=== PATIENT | female | born 1975 | race Caucasian/White ===

== ENCOUNTER 2019-02-21 10:03 | Emergency (ER) | payer OTHER ==
[2019-02-21] MEDS ORDERED: TETANUS & DIPHTHERIA TOX,ADULT 0.5 ML VIAL ONE (10:43)
[2019-02-21] MEDS ORDERED: LIDOCAINE 1% MPF 5 ML VIAL ONE (10:43)
--- NOTE | 2019-02-21 11:37 | ER ---
Nurse's Notes [facility] Name: Wyatt Marcano Age: 43 yrs Sex: Female : 1975 Arrival Date: 02/21/2019 Time: 10:06 Bed 13 Private MD: Kurt Bolivar Diagnosis: Laceration without foreign body of left hand Presentation: 02/21 10:21 Presenting complaint: Patient states: "I cut my hand on a knife pulling the knife out aj1 of the hodgson" Laceration noted to webspace between left thumb and index finger. Transition of care: patient was not received from another setting of care. Complicating Factors: There are no complicating factors for this patient. Onset of symptoms was February 21, 2019. Onset of symptoms was February 21, 2019 at 09:15. Risk Assessment: Do you want to hurt yourself or someone else? Patient reports no desire to harm self or others. Initial Sepsis Screen: Does the patient meet any 2 criteria? No. Patient's initial sepsis screen is negative. Does the patient have a suspected source of infection? No. Patient's initial sepsis screen is negative. Care prior to arrival: None. 10:21 Method Of Arrival: Ambulatory aj1 10:21 Acuity: SYDNIE 4 aj1 Triage Assessment: 10:23 General: Appears in no apparent distress. comfortable, Behavior is calm, cooperative, aj1 appropriate for age. Pain: Complains of pain in Left first web space. Neuro: Level of Consciousness is awake, alert, obeys commands. Cardiovascular: Patient's skin is warm and dry. Respiratory: Airway is patent Respiratory effort is even, unlabored, Respiratory pattern is regular, symmetrical. Injury Description: Laceration sustained to Left first web space. 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 - Social history:: Smoking status: Patient uses tobacco products, smokes one-half pack cigarettes per day. - Ebola Screening: : Patient denies travel to an Ebola-affected area in the 21 days before illness onset. Screenin:48 Abuse screen: Denies threats or abuse. Denies injuries from another. Nutritional iw screening: No deficits noted. Tuberculosis screening: No symptoms or risk factors identified. Fall Risk None identified. Assessment: 10:46 General: Appears in no apparent distress. Behavior is calm, cooperative. Pain: iw Complains of pain in left hand and Left first web space. Neuro: Level of Consciousness is awake, alert, obeys commands, Oriented to person, place, time, situation, Moves all extremities. Cardiovascular: Patient's skin is warm and dry. Respiratory: Airway is patent Respiratory effort is even, unlabored, Respiratory pattern is regular, symmetrical. GI: No signs and/or symptoms were reported involving the gastrointestinal system. Derm: Skin is intact. Musculoskeletal: Range of motion: intact in all extremities. Injury Description: Laceration sustained to Left first web space is 0.5 to 2.5 cm long, was sustained 1-2 hours ago. is bleeding a small amount. Vital Signs: 10:23 BP 119 / 84; Pulse 89; Resp 18; Temp 97.8; Pulse Ox 98% on R/A; Weight 76.66 kg (R); aj1 Height 5 ft. 2 in. (157.48 cm) (R); Pain 2/10; 10:23 Body Mass Index 30.91 (76.66 kg, 157.48 cm) aj1 ED Course: 10:06 Patient arrived in ED. mr 10:06 Kurt Bolivar MD is Private Physician. mr 10:07 Fareed Mckeon NP is PHCP. pm1 10:07 Toni Oshea MD is Attending Physician. pm1 10:22 Triage completed. aj1 10:23 Arm band placed on Patient placed in an exam room. aj1 10:25 Edita Retana, GEE is Primary Nurse. iw 10:48 Patient has correct armband on for positive identification. Bed in low position. iw 10:48 Patient did not have IV access during this emergency room visit. iw 11:30 Assist provider with laceration repair on Left first web space that was between 2.6 to iw 7.5 cm using sutures. Set up tray. Performed by Fareed Mckeon PREPRESS OPERATOR Dressed with 4X4s, Patient tolerated well. 12:13 Orthoglass splint: Thumb spica splint applied on left forearm. mh5 Administered Medications: 10:45 Drug: Tetanus-Diphtheria Toxoid Adult 0.5 ml {Electronic Musical Instrument Repairer: [employer]. Exp: iw 01/03/2021. Lot #: [id number]. } Route: IM; Site: right deltoid; 12:15 Drug: Lidocaine (1 %) 5 ml Volume: 5 ml; Route: Infiltration; iw Outcome: 11:36 Discharge ordered by MD. pm1 12:14 Discharged to home ambulatory, with family. iw 12:14 Condition: good 12:14 Discharge instructions given to patient, family, Instructed on discharge instructions, follow up and referral plans. medication usage, Demonstrated understanding of instructions, follow-up care, medications, Prescriptions given X 1. 12:15 Patient left the ED. iw Signatures: Michelle Joseph RN RN 1 Marivel Arias Irene, RN RN iw Fareed Mckeon, ADRIENNE PREPRESS OPERATOR pm1 [facility]
--- NOTE | 2019-02-21 11:37 | EDPHYS ---
Physician Documentation [facility] Name: Wyatt Marcano Age: 43 yrs Sex: Female : 1975 Arrival Date: 02/21/2019 Time: 10:06 Bed 13 Private MD: Kurt Bolivar ED Physician Toni Oshea HPI: 02/21 10:35 This 43 yrs old Female presents to ER via Ambulatory with complaints of pm1 Laceration To Left Hand. 10:35 The patient has a laceration related to: Patient was taking her knife out of the sheath pm1 and cut herself between the thumb and second finger occurred at home. Onset: The symptoms/episode began/occurred just prior to arrival. Associated signs and symptoms: Pertinent negatives: deformity, heavy bleeding, numbness distal to injury, suspected foreign body. 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 - Social history:: Smoking status: Patient uses tobacco products, smokes one-half pack cigarettes per day. - Ebola Screening: : Patient denies travel to an Ebola-affected area in the 21 days before illness onset. ROS: 10:35 Constitutional: Negative for fever, chills, and weight loss, Cardiovascular: Negative pm1 for chest pain, palpitations, and edema, Respiratory: Negative for shortness of breath, cough, wheezing, and pleuritic chest pain. 10:35 Neuro: Negative for headache, weakness, numbness, tingling, and seizure. 10:35 MS/extremity: Positive for laceration, of the Left first web space, Negative for decreased range of motion, deformity. 10:35 Skin: Positive for laceration(s), of the Left first web space. 10:35 All other systems are negative. Exam: 10:35 Constitutional: This is a well developed, well nourished patient who is awake, alert, pm1 and in no acute distress. Head/Face: Normocephalic, atraumatic. Neck: Trachea midline, no thyromegaly or masses palpated, and no cervical lymphadenopathy. Supple, full range of motion without nuchal rigidity, or vertebral point tenderness. No Meningismus. Chest/axilla: Normal chest wall appearance and motion. Nontender with no deformity. No lesions are appreciated. Cardiovascular: Regular rate and rhythm with a normal S1 and S2. No gallops, murmurs, or rubs. Normal PMI, no JVD. No pulse deficits. Respiratory: Lungs have equal breath sounds bilaterally, clear to auscultation and percussion. No rales, rhonchi or wheezes noted. No increased work of breathing, no retractions or nasal flaring. 10:35 Skin: Appearance: normal except for affected area, injury, laceration(s), the wound is approximately 2 cm(s), with a depth of 0.5 cm(s), of the Left first web space. 10:35 Neuro: Orientation: is normal, Motor: is normal, moves all fours, FROM intact to left thumb and left second finger, Sensation: is normal, no obvious gross deficits. Vital Signs: 10:23 BP 119 / 84; Pulse 89; Resp 18; Temp 97.8; Pulse Ox 98% on R/A; Weight 76.66 kg (R); aj1 Height 5 ft. 2 in. (157.48 cm) (R); Pain 2/10; 10:23 Body Mass Index 30.91 (76.66 kg, 157.48 cm) aj1 Laceration: 11:34 Wound Repair of 2cm ( 0.8in ) subcutaneous laceration to Left first web space. Linear pm1 shaped.. Distal neuro/vascular/tendon intact. Anesthesia: Local anesthetic administered with 3 mls of 1% lidocaine. Wound prep: Extensive cleansing with hibiclenz by fl, Wound irrigation with saline by fl, Wound explored extensively, Copious irrigation. Skin closed with 5 4-0 Prolene using simple sutures and sterile technique. Dressed with 4x4's. Patient tolerated well. MDM: 10:25 Patient medically screened. [facility] 11:35 Counseling: I had a detailed discussion with the patient and/or guardian regarding: the pm1 historical points, exam findings, and any diagnostic results supporting the discharge/admit diagnosis, the need for outpatient follow up, suture removal in 10-14 days, to return to the emergency department if symptoms worsen or persist or if there are any questions or concerns that arise at home. 11:35 Data reviewed: vital signs. Data interpreted: Pulse oximetry: on room air is 98 %. pm1 Interpretation: normal. 02/21 10:34 Order name: Prolene, Sutures; Complete Time: 12:12 pm1 02/21 10:34 Order name: Dressing - Wound; Complete Time: 12:12 pm1 02/21 10:34 Order name: Gloves, Sterile; Complete Time: 12:12 pm1 02/21 10:34 Order name: Setup Suture Tray; Complete Time: 11:00 pm1 02/21 11:35 Order name: Thumb Spica Splint; Complete Time: 12:12 pm1 Administered Medications: 10:45 Drug: Tetanus-Diphtheria Toxoid Adult 0.5 ml {Riveter Hand: [employer]. Exp: iw 01/03/2021. Lot #: [id number]. } Route: IM; Site: right deltoid; 12:15 Drug: Lidocaine (1 %) 5 ml Volume: 5 ml; Route: Infiltration; iw Disposition: 15:12 Co-signature as Attending Physician, Toni Oshea MD I agree with the assessment and cassandra plan of care. Disposition: 02/21/19 11:36 Discharged to Home. Impression: Laceration without foreign body of left hand. - Condition is Stable. - Discharge Instructions: Cast or Splint Care, Adult, Laceration Care, Adult. - Prescriptions for Bactrim DS 800- 160 mg Oral Tablet - take 1 tablet by ORAL route every 12 hours for 10 days; 20 tablet. - Medication Reconciliation Form, Thank You Letter, Antibiotic Education, Prescription Opioid Use form. - Follow up: Emergency Department; When: As needed; Reason: Worsening of condition. Follow up: Private Physician; When: 10 - 14 days; Reason: Recheck today's complaints, Continuance of care, Staple/Suture removal, Re-evaluation by your physician. - Problem is new. - Symptoms have improved. Signatures: Michelle Joseph RN RN aj1 Anderson, Corey, MD MD cha Williams, Irene, RN RN iw Marinas, Patrick, ADRIENNE BUSINESS RECORDS MANAGER pm1 Corrections: (The following items were deleted from the chart) 12:15 11:36 02/21/2019 11:36 Discharged to Home. Impression: Laceration without foreign body iw of left hand. Condition is Stable. Forms are Medication Reconciliation Form, Thank You Letter, Antibiotic Education, Prescription Opioid Use. Follow up: Emergency Department; When: As needed; Reason: Worsening of condition. Follow up: Private Physician; When: 10 - 14 days; Reason: Recheck today's complaints, Continuance of care, Staple/Suture removal, Re-evaluation by your physician. Problem is new. Symptoms have improved. pm1
[2019-02-21 12:37] VITALS: BP 119/84; TEMP 97.8; O2SAT 98
== END 2019-02-21 12:15 | disposition home or self-care (01) ==
LOC: ER 10:03
PROC: 0JQK0ZZ Repair Left Hand Subcutaneous Tissue and Fascia, Open Approach (ICD-10-PCS; principal; 2019-02-21)
DX: S61.412A Laceration without foreign body of left hand, initial encounter (principal); Z23 Encounter for immunization; W26.0XXA Contact with knife, initial encounter; Y93.89 Activity, other specified; Y92.9 Unspecified place or not applicable; Z88.0 Allergy status to penicillin; F34.1 Dysthymic disorder; F17.210 Nicotine dependence, cigarettes, uncomplicated
CPT/HCPCS: 90471; 90714; 99284

== ENCOUNTER 2019-08-05 22:46 | Emergency (ER) | payer OTHER ==
--- NOTE | 2019-08-05 23:35 | ER ---
Nurse's Notes [facility] Name: yWatt Marcano Age: 43 yrs Sex: Female : 1975 Arrival Date: 08/05/2019 Time: 22:51 Bed 13 Private MD: Diagnosis: Encounter for general adult medical examination without abnormal findings Presentation: 08/04 22:51 Chief complaint: Patient states: Wants covid test. States her has all the ll1 symptoms. She has BARBA. No cough, SOB or fever. No travel or known contact. Coronavirus screen: Proceed with normal triage. Patient denies a cough. Patient denies shortness of breath or difficulty breathing. Patient denies measured and/or subjective temperature greater than 100.4F prior to today's visit. Patient denies travel on a cruise ship or to a country the [facility] currently lists as an affected area. Patient denies contact with known and/or suspected case of COVID-19. Ebola Screen: Patient denies travel to an Ebola-affected area in the 21 days before illness onset. Initial Sepsis Screen: Does the patient meet any 2 criteria? HR > 90 bpm. No. Patient's initial sepsis screen is negative. Risk Assessment: Do you want to hurt yourself or someone else? Patient reports no desire to harm self or others. Onset of symptoms was August 05, 2019. 22:51 Method Of Arrival: EMS: [facility] 22:51 Acuity: SYDNIE 4 ll1 23:00 Initial Sepsis Screen: Does the patient have a suspected source of infection? No. vc Patient's initial sepsis screen is negative. Triage Assessment: 23:00 Headache History: The patient has had previous headaches and this one is similar to previous episodes. General: Appears in no apparent distress. uncomfortable, Behavior is cooperative, anxious, crying. Pain: Complains of pain in forehead Pain currently is 3 out of 10 on a pain scale. Pain began gradually, Also complains of no other associated symptoms. Neuro: Level of Consciousness is awake, alert, obeys commands, Oriented to person, place, time, situation, Appropriate for age. Historical: - Allergies: 22:53 PENICILLINS; ll1 - PMHx: 22:53 Anxiety; Depression; ll1 - PSHx: 22:53 Hernia repair; ll1 - Immunization history:: Adult Immunizations up to date. - Social history:: Smoking status: Patient reports the use of cigarette tobacco products, smokes one-half pack cigarettes per day, Patient uses alcohol, only on a social basis. Patient/guardian denies using street drugs. Screenin:00 Abuse screen: Denies threats or abuse. Nutritional screening: No deficits noted. vc Tuberculosis screening: No symptoms or risk factors identified. Fall Risk None identified. Assessment: 23:00 General: Appears in no apparent distress. Pain: Complains of pain in forehead Pain does vc not radiate. Pain currently is 3 out of 10 on a pain scale. Quality of pain is described as dull, pressure. Neuro: Level of Consciousness is awake, alert, obeys commands, Oriented to person, place, time, situation, Appropriate for age. Cardiovascular: Capillary refill < 3 seconds Patient's skin is warm and dry. Respiratory: Airway is patent Respiratory effort is even, unlabored, Respiratory pattern is regular, symmetrical. GI: No signs and/or symptoms were reported involving the gastrointestinal system. : No signs and/or symptoms were reported regarding the genitourinary system. EENT:. Derm: Skin is intact, is healthy with good turgor. Musculoskeletal: Circulation, motion, and sensation intact. Range of motion: intact in all extremities. Vital Signs: 22:51 BP 120 / 89; Pulse 101; Resp 17; Temp 99.1; Pulse Ox 97% ; Pain 3/10; ll1 ED Course: 22:51 Patient arrived in ED. ll1 22:53 Triage completed. ll1 22:54 Arm band placed on. ll1 23:00 Patient has correct armband on for positive identification. vc 23:02 Shimon Headley PA is PHCP. jr8 23:02 Hakeem Bashir MD is Attending Physician. jr8 23:02 Maria Guadalupe Fabian RN is Primary Nurse. vc 23:30 No provider procedures requiring assistance completed. Patient did not have IV access vc during this emergency room visit. Administered Medications: No medications were administered Outcome: 23:34 Discharge ordered by . jr8 07 00:00 Discharged to home ambulatory. vc Condition: good Discharge instructions given to patient, Instructed on discharge instructions, follow up and referral plans. Demonstrated understanding of instructions, follow-up care. 00:01 Patient left the ED. vc Signatures: Shimon Headley PA PA jr8 Maria Guadalupe Fabian RN RN vc Tha Calderon RN RN ll1
--- NOTE | 2019-08-05 23:35 | EDPHYS ---
Physician Documentation [facility] Name: Wyatt Marcano Age: 43 yrs Sex: Female : 1975 Arrival Date: 08/05/2019 Time: 22:51 Bed 13 Private MD: ED Physician Hakeem Bashir HPI: 08/04 23:35 This 43 yrs old Female presents to ER via EMS with complaints of Wants to be jr8 COVID Tested. 23:35 Onset: The symptoms/episode began/occurred acutely, today. Associated signs and jr8 symptoms: The patient has no apparent associated signs or symptoms. The patient has not experienced similar symptoms in the past. The patient has not recently seen a physician. Patient stated that her started to run fever today. That he has not been tested for COVID but is worried he may have it. Called EMS to come get COVID tested herself because he wouldn't go. Denies any symptoms. Historical: - Allergies: 22:53 PENICILLINS; ll1 - PMHx: 22:53 Anxiety; Depression; ll1 - PSHx: 22:53 Hernia repair; ll1 - Immunization history:: Adult Immunizations up to date. - Social history:: Smoking status: Patient reports the use of cigarette tobacco products, smokes one-half pack cigarettes per day, Patient uses alcohol, only on a social basis. Patient/guardian denies using street drugs. ROS: 23:35 Eyes: Negative for injury, pain, redness, and discharge, ENT: Negative for injury, jr8 pain, and discharge, Neck: Negative for injury, pain, and swelling, Cardiovascular: Negative for chest pain, palpitations, and edema, Respiratory: Negative for shortness of breath, cough, wheezing, and pleuritic chest pain, Abdomen/GI: Negative for abdominal pain, nausea, vomiting, diarrhea, and constipation, Back: Negative for injury and pain, MS/Extremity: Negative for injury and deformity, Skin: Negative for injury, rash, and discoloration, Neuro: Negative for headache, weakness, numbness, tingling, and seizure. Exam: 23:35 Eyes: Pupils equal round and reactive to light, extra-ocular motions intact. Lids and jr8 lashes normal. Conjunctiva and sclera are non-icteric and not injected. Cornea within normal limits. Periorbital areas with no swelling, redness, or edema. ENT: Nares patent. No nasal discharge, no septal abnormalities noted. Tympanic membranes are normal and external auditory canals are clear. Oropharynx with no redness, swelling, or masses, exudates, or evidence of obstruction, uvula midline. Mucous membranes moist. Cardiovascular: Regular rate and rhythm with a normal S1 and S2. No gallops, murmurs, or rubs. Normal PMI, no JVD. No pulse deficits. Respiratory: Lungs have equal breath sounds bilaterally, clear to auscultation and percussion. No rales, rhonchi or wheezes noted. No increased work of breathing, no retractions or nasal flaring. Abdomen/GI: Soft, non-tender, with normal bowel sounds. No distension or tympany. No guarding or rebound. No evidence of tenderness throughout. Back: No spinal tenderness. No costovertebral tenderness. Full range of motion. Skin: Warm, dry with normal turgor. Normal color with no rashes, no lesions, and no evidence of cellulitis. MS/ Extremity: Pulses equal, no cyanosis. Neurovascular intact. Full, normal range of motion. Neuro: Awake and alert, GCS 15, oriented to person, place, time, and situation. Cranial nerves II-XII grossly intact. Motor strength 5/5 in all extremities. Sensory grossly intact. Cerebellar exam normal. Normal gait. Vital Signs: 22:51 BP 120 / 89; Pulse 101; Resp 17; Temp 99.1; Pulse Ox 97% ; Pain 3/10; ll1 MDM: 23:02 Patient medically screened. [facility] 23:34 Data reviewed: vital signs, nurses notes, and as a result, I will discharge patient. jr8 Data interpreted: Pulse oximetry: on room air is 97 %. Interpretation: normal. Counseling: I had a detailed discussion with the patient and/or guardian regarding: the historical points, exam findings, and any diagnostic results supporting the discharge/admit diagnosis, the need for outpatient follow up, a family practitioner, to return to the emergency department if symptoms worsen or persist or if there are any questions or concerns that arise at home. 23:37 ED course: Discussed with patient that a PCR would not be of benefit at this time as jr8 her just presented with symptoms and she does not have any and we don't even know if he has it. Explained that she needs to wait a few days and can go to free testing site which we gave her a hand out for and could be tested at that time. If she did become symptomatic that she could come back . Administered Medications: No medications were administered Disposition: 08/05 01:20 Co-signature as Attending Physician, Hakeem Bashir MD. mh7 Disposition: 08/05/19 23:34 Discharged to Home. Impression: Encounter for general adult medical examination without abnormal findings. - Condition is Stable. - Discharge Instructions: COVID-19. - Medication Reconciliation Form, Thank You Letter, Antibiotic Education, Prescription Opioid Use form. - Follow up: Private Physician; When: As needed; Reason: Recheck today's complaints, Continuance of care, Re-evaluation by your physician. - Problem is new. - Symptoms are unchanged. Signatures: Shimon Headley PA PA jr8 Maria Guadalupe Fabian RN RN vc Lewis, Lynsay, RN RN [facility] Hakeem Bashir MD MD 7 Corrections: (The following items were deleted from the chart) 00:01 08/04 23:34 08/05/2019 23:34 Discharged to Home. Impression: Encounter for general vc adult medical examination without abnormal findings. Condition is Stable. Forms are Medication Reconciliation Form, Thank You Letter, Antibiotic Education, Prescription Opioid Use. Follow up: Private Physician; When: As needed; Reason: Recheck today's complaints, Continuance of care, Re-evaluation by your physician. Problem is new. Symptoms are unchanged. jr8
[2019-08-06 01:06] VITALS: BP 120/89; TEMP 99.1; O2SAT 97
== END 2019-08-06 00:01 | disposition home or self-care (01) ==
LOC: ER 22:46
DX: Z00.00 Encounter for general adult medical examination without abnormal findings (principal)
CPT/HCPCS: 99283